=== PATIENT | male | born 1980 | race Hispanic/Latino ===

== ENCOUNTER 2023-07-05 13:12 | Emergency (ER) | payer SELFPAY ==
[2023-07-05 13:57] VITALS: BP 159/97; PULSE 98; RESP 19; TEMP 37.2; O2SAT 100; BMI 23.8
--- NOTE | 2023-07-05 14:04 | DI.RAD.S_ITS ---
PROCEDURE: XR HAND LT MIN 3V INDICATIONS: LACERATION OF RT HAND, BLEEDING, WORK INJURY TECHNIQUE: 3 views of the hand(s) acquired. COMPARISON: None. FINDINGS: Bones: No fractures or dislocations. Carpal bones are normally aligned. No suspicious bony lesions. Soft tissues: No suspicious soft tissue calcifications. No radiodense foreign body. IMPRESSION: No fracture. No osseous lesion. If symptoms and/or clinical suspicion for pathology persists, further assessment with repeat radiographs (7-10 days) or advanced imaging (e.g. CT, MRI or bone scan) should be considered. Dictated by: Portia Carvalho MD, PhD on 07/05/2023 at 15:29 Approved by: Portia Carvalho MD, PhD on 07/05/2023 at 15:29
[2023-07-05] MEDS: IBUPROFEN 400 MG TABLET 800 MG PO (14:08)
--- NOTE | 2023-07-05 15:42 | ED.WOUNDLAC ---
HPI - Wound/Laceration General Chief Complaint: Wound/Laceration Stated Complaint: Laceration on rt hand, bleeding, work injury Time Seen by Provider: 07/05/23 15:38 Source: patient Mode of arrival: Family Vehicle Related Data Allergies Allergy/AdvReac Type Severity Reaction Status Date / Time No Known Drug Allergies Allergy Verified 07/05/23 14:03 Review of Systems Review of Systems ROS Unobtainable: All systems reviewed & are unremarkable except as noted in HPI and below Constitutional Constitutional: Denies chills, Denies fatigue, Denies fever(s), Denies frequent falls, Denies lethargy and Denies weakness Eyes Eyes: Denies change in vision, Denies eye discharge, Denies irritation and Denies loss of vision ENT Ears, Nose, Mouth, and Throat: Denies change in voice, Denies dizziness, Denies neck pain, Denies sore throat and Denies throat swelling Cardiovascular Cardiovascular: Denies chest pain, Denies irregular heart rhythm, Denies lightheadedness, Denies palpitations, Denies dyspnea, Denies dyspnea on exertion and Denies orthopnea Respiratory Respiratory: Denies cough, Denies dyspnea, Denies dyspnea on exertion and Denies wheezing Gastrointestinal Gastrointestinal: Denies abdominal pain, Denies change in bowel habits, Denies diarrhea, Denies nausea and Denies vomiting Genitourinary Genitourinary: Denies hematuria, Denies flank pain, Denies urinary incontinence and Denies urinary urgency Musculoskeletal Musculoskeletal: Denies back pain, Denies muscle weakness, Denies neck pain, Denies numbness and Denies tingling Integumentary/Breasts Skin/Breast: Denies pruritus, Denies erythema, Denies rash and Reports wounds Neurologic Neurologic: Denies behavioral changes, Denies confusion, Denies dizziness, Denies frequent falls, Denies loss of vision, Denies numbness, Denies tingling and Denies weakness Psychiatric Psychiatric: Denies anxiety, Denies behavioral changes, Denies confusion, Denies depression, Denies homicidal ideation and Denies suicidal ideation Endocrine Endocrine: Denies fatigue, Denies flushing and Denies palpitations Hematologic/Lymphatic Hematologic/Lymphatic: Denies easy bruising Allergic/Immunologic Allergic/Immunologic: Denies urticaria, Denies throat swelling and Denies wheezing Patient History Social History Smoking Status: Current every day smoker Smoking Status: Current every day smoker tobacco type: cigarettes alcohol intake frequency: a few times a week Substance Use Type: does not use Exam Narrative Exam Narrative: Const General:?cooperative, healthy appearing and comfortable [facility] Head:?normal to inspection Ears:?hearing grossly normal bilaterally Nose:?external nose normal Face and sinus:?normal facial exam and sinuses nontender Mouth:?oral mucosae normal Throat:?posterior oropharynx normal Eyes General:?appearance normal, both eyes and all related structures Neck Neck:?normal visual inspection and no lymphadenopathy noted Resp Effort & Inspection:?normal respiratory effort Auscultation:?clear to auscultation bilaterally Cardio Rate:?regular rate Rhythm:?regular rhythm Integumentary Neuro General:?patient alert, patient awake and patient oriented x3 Initial Vital Signs Initial Vital Signs: Vital Signs Temperature 98.9 F 07/05/23 13:57 Pulse Rate 98 H 07/05/23 13:57 Respiratory Rate 19 07/05/23 13:57 Blood Pressure 159/97 H 07/05/23 13:57 Pulse Oximetry 100 07/05/23 13:57 Oxygen Delivery Method Room Air 07/05/23 13:57 Course Orders Ordered: ED Orders 07/05/23 14:04 XR hand LT min 3V Stat Discontinued Medications Ibuprofen (Ibuprofen 400 Mg Tablet) 800 mg PO NOW ONE Stop: 07/05/23 14:06 Last Admin: 07/05/23 14:08 Dose: 800 mg Documented By: DYLAN Vital Signs Vital signs: Vital Signs - 8 hr 07/05/23 13:57 Temperature 98.9 F Pulse Rate 98 H Respiratory Rate 19 Blood Pressure 159/97 H Pulse Oximetry 100 Oxygen Delivery Method Room Air
--- NOTE | 2023-07-05 15:57 | PC.NURSE ---
called multiple times in the lobby with no answer my Tracy RFID TECHNICIAN and myself. patients cell phone called with no answer. bowstring maker and provider aware.
== END 2023-07-05 15:59 | disposition left against medical advice (07) ==
PROVIDERS: Emergency Provider Student in an Organized Health Care Education/Training Program
DX: S69.91XA Unspecified injury of right wrist, hand and finger(s), initial encounter (principal); W26.9XXA Contact with unspecified sharp object(s), initial encounter; Y99.0 Civilian activity done for income or pay
CPT/HCPCS: 73130; 99283